=== PATIENT | female | born 1985 | race Caucasian/White ===

== ENCOUNTER 2016-05-21 13:08 | Emergency (ER) | payer MEDICAID ==
--- NOTE | 2016-05-21 13:10 | EDM.PDOC ---
ED HISTORY OF PRESENT ILLNESS - General Chief Complaint: Chest Pain Stated Complaint: chest pain [id number] Time Seen by Provider: 05/21/16 13:13 Source of Information: Reports: Patient, RN, RN notes reviewed History Limitations: Reports: No limitations - History of Present Illness INITIAL COMMENTS - FREE TEXT/NARRATIVE: Complaining of gradual onset of lower left chest pain at 11 p.m. last night. It went away after a few hours then returned this morning and now much worse. Radiates straight through to left mid-back. Admits to SOB and painful to breathe. Denies cough, fever, chills or sore throat. She took three 81mg aspirin prior to arrival. Severity: moderate Location, General: Reports: chest Quality: Reports: Ache Improves with: Reports: Movement Worsens with: Reports: None Associated Symptoms (General): Reports: no other symptoms - Related Data Allergies/ADRs: Allergies Allergy/AdvReac Type Severity Reaction Status Date / Time ampicillin Allergy Cannot Verified 09/18/14 23:49 Remember Penicillins Allergy Cannot Verified 09/18/14 23:49 Remember Home Meds: Home Meds . [No Known Home Meds] 01/26/13 [History] Past Medical History Psychiatric History: Reports: Depression - Past Surgical History Female Surgical History: Reports: Tubal ligation (bilateral) Social & Family History - Family History Family Medical History: Noncontributory - Tobacco Use Smoking Status *Q: Current Every Day Smoker Years of Tobacco use: 18 Second Hand Smoke Exposure: Yes - Recreational Drug Use Recreational Drug Use: No ED ROS GENERAL - Review of Systems Review Of Systems: ROS reveals no pertinent complaints other than HPI. ED EXAM, GENERAL - Physical Exam Exam: See Below Exam Limited By: No limitations Eye Exam: bilateral eye: normal inspection Ears: normal external exam, normal canal, hearing grossly normal, normal TMs Nose: normal inspection, normal mucosa, no blood Throat/Mouth: Normal inspection, Normal lips, Normal teeth, Normal gums, Normal oropharynx, Normal voice, No airway compromise Head: atraumatic, normocephalic Neck: normal inspection, supple, non-tender, full range of motion Respiratory/Chest: other (decreased sounds in bilateral bases, otherwise clear. Left lower anterior chest wall tenderness.) Cardiovascular: normal peripheral pulses, regular rate, rhythm, no edema, no gallop, no JVD, no murmur, no rub GI/Abdominal: other (Left upper quadrant tenderness.) Back Exam: normal inspection, full range of motion, NT Extremities: normal inspection, normal range of motion, non-tender, normal capillary refill, no pedal edema Neurological: alert, oriented, CN II-XII intact, normal cognition, normal gait, normal reflexes, no motor/sensory deficits Psychiatric: normal affect, normal mood Skin Exam: Warm, Dry, Intact, Normal color, No rash Lymphatic: no adenopathy EKG INTERPRETATION EKG Date: 05/21/16 Time: 13:13 Rhythm: other (sinus rhythm) Rate (beats/min): 83 [place]: normal P-wave: present QRS: normal ST-T: normal QT: normal Course - Vital Signs Last Recorded V/S: Last Vital Signs Temp 36.8 C 05/21/16 13:36 Pulse 85 05/21/16 13:36 Resp 20 05/21/16 13:36 BP 107/62 05/21/16 13:36 Pulse Ox 99 05/21/16 13:36 - Orders/Labs/Meds Orders: Active Orders 24 hr Category Date Time Status EKG 12 Lead [EKG Documentation Completion] [RC] STAT Care 05/21/16 13:34 Active Peripheral IV Care [RC] . DIRECTED Care 05/21/16 13:35 Active RT Aerosol Therapy [RC] ASDIRECTED Care 05/21/16 14:23 Active RT Incentive Spirometry [RC] ASDIRECTED Care 05/21/16 14:28 Active Chest 2V [CR] Stat Exams 05/21/16 13:35 Taken UA W/MICROSCOPIC [URIN] Stat Lab 05/21/16 13:34 Uncollected Sodium Chloride 0.9% [Saline Flush] Med 05/21/16 13:33 Active 10 ml FLUSH ASDIRECTED PRN Peripheral IV Insertion Adult [OM.PC] Stat Oth 05/21/16 13:34 Ordered Medication Orders Sodium Chloride (Saline Flush) 10 ml FLUSH ASDIRECTED PRN PRN Reason: Keep Vein Open Labs: Laboratory Tests 05/21/16 05/21/16 05/21/16 Range/Units 13:45 13:45 13:45 WBC 9.5 (5.0-10.0) 10^3/uL RBC 4.19 L (4.2-5.4) 10^6/uL Hgb 12.5 (12.0-16.0) g/dL Hct 37.8 (37.0-47.0) % MCV 90.2 (80-100) fL MCH 29.8 (27.0-34.0) pg MCHC 33.1 (33.0-35.0) g/dL Plt Count 167 (150-450) 10^3/uL Neut % (Auto) 74.7 (42.2-75.2) % Lymph % (Auto) 16.6 L (20.5-50.1) % [place] % (Auto) 7.4 (2-8) % Eos % (Auto) 1.1 (1.0-3.0) % Baso % (Auto) 0.2 (0.0-1.0) % D-Dimer, Quantitative 367 (0-400) ng/mL Sodium 136 (135-145) mmol/L Potassium 4.0 (3.6-5.0) mmol/L Chloride 103 (101-111) mmol/L Carbon Dioxide 25.0 (21.0-31.0) mmol/L Anion Gap 12.0 BUN 9 (7-18) mg/dL Creatinine 0.6 (0.6-1.3) mg/dL Est Cr Clr Drug Dosing 137.04 mL/min Estimated GFR (MDRD) > 60 BUN/Creatinine Ratio 15.00 Glucose 94 (74-105) mg/dL Calcium 8.9 (8.4-10.2) mg/dl Total Bilirubin 0.4 (0.2-1.0) mg/dL AST 13 (10-42) IU/L ALT 9 L (10-60) IU/L Alkaline Phosphatase 55 (42-121) IU/L Troponin I < 0.02 (0.00-0.02) ng/ml Total Protein 7.5 (6.7-8.2) g/dl Albumin 4.0 (3.2-5.5) g/dl Globulin 3.5 Albumin/Globulin Ratio 1.14 Amylase 31 (28-100) U/L Lipase 13 L (22-51) U/L Meds: Medications Generic Name Dose Route Start Last Admin Trade Name Freq PRN Reason Stop Dose Admin Sodium Chloride 10 ml 05/21/16 13:33 Saline Flush FLUSH ASDIRECTED PRN Keep Vein Open Discontinued Medications Generic Name Dose Route Start Last Admin Trade Name [place] PRN Reason Stop Dose Admin Hydrocodone Bitart/Acetaminophen 1 tab 05/21/16 14:22 [place] 325-10 Mg PO 05/21/16 14:23 ONETIME ONE Albuterol/Ipratropium 3 ml 05/21/16 14:22 Duoneb 3.0-0.5 Mg/3 Ml NEB 05/21/16 14:23 ONETIME ONE Azithromycin 500 mg 05/21/16 14:30 Zithromax PO 05/21/16 14:31 ONETIME ONE Methylprednisolone Sodium Succinate 125 mg 05/21/16 14:30 Solu-Medrol IVPUSH 05/21/16 14:31 ONETIME ONE - Radiology Interpretation Free Text/Narrative:: Chest x-ray: Per rad report shows mild opacity in the lingula may represent atelectasis or pneumonia. CT Results Date: 05/21/16 Departure - Departure Time of Disposition: 14:39 Disposition: Home, Self-Care 01 Condition: fair Clinical Impression: Pleurisy without effusion, Atelectasis of left lung, Tobacco abuse disorder Instructions: Pleurisy, [id number], Pleurodynia Forms: ED Department Discharge Additional Instructions: Rx: Zithromax 250mg Rx: Prednisone 20mg Rx: Phenergan Codeine Syrup *Do not drive while under the influence of this medication. Use the incentive spirometer once every hour while awake until the pain has completely resolved. Quit smoking. Follow up at your primary clinic in 2 to 3 days for recheck if not improving, otherwise follow up 2 weeks for lung recheck. - My Orders Last 24 Hours: My Active Orders 05/21/16 13:33 Sodium Chloride 0.9% [Saline Flush] 10 ml FLUSH ASDIRECTED PRN 05/21/16 13:34 EKG 12 Lead [EKG Documentation Completion] [RC] STAT UA W/MICROSCOPIC [URIN] Stat Peripheral IV Insertion Adult [OM.PC] Stat 05/21/16 13:35 Peripheral IV Care [RC] . DIRECTED Chest 2V [CR] Stat 05/21/16 14:23 RT Aerosol Therapy [RC] ASDIRECTED 05/21/16 14:28 RT Incentive Spirometry [RC] ASDIRECTED - Assessment/Plan Last 24 Hours: My Active Orders 05/21/16 13:33 Sodium Chloride 0.9% [Saline Flush] 10 ml FLUSH ASDIRECTED PRN 05/21/16 13:34 EKG 12 Lead [EKG Documentation Completion] [RC] STAT UA W/MICROSCOPIC [URIN] Stat Peripheral IV Insertion Adult [OM.PC] Stat 05/21/16 13:35 Peripheral IV Care [RC] . DIRECTED Chest 2V [CR] Stat 05/21/16 14:23 RT Aerosol Therapy [RC] ASDIRECTED 05/21/16 14:28 RT Incentive Spirometry [RC] ASDIRECTED
[2016-05-21] MEDS ORDERED: Sodium Chloride 0.9% 10 ML Syringe FLUSH PRN (13:33)
[2016-05-21 13:40] VITALS: BP 107/62
[2016-05-21 14:13] LABS: CHLORIDE,CL 103 mmol/L (101-111); SODIUM,NA 136 mmol/L (135-145)
[2016-05-21] MEDS ORDERED: Albuterol/Ipratropium 3.0-0.5 MG/3 ML Neb Soln NEB ONE (14:22)
[2016-05-21] MEDS ORDERED: Acetaminophen/HYDROcodone 325-10 MG Tab PO ONE (14:22)
[2016-05-21] MEDS ORDERED: Azithromycin 250 MG Tab PO ONE (14:30)
[2016-05-21] MEDS ORDERED: methylPREDNISolone Sodium Succinate 125 MG/2 ML SDV IVPUSH ONE (14:30)
--- NOTE | 2016-06-13 13:11 | EKG ---
05/21/2016- ERICA MONTILLA - This is a 12-lead standard EKG showing normal sinus rhythm, with a heart rate of 83 beats per minute. Normal MO interval and QRS duration. Normal axis. No ST- T changes. Normal EKG. [facility] /[id number]
== END 2016-05-21 15:20 | disposition home or self-care (01) ==
LOC: DL.ED 13:08
DX: J98.11 Atelectasis (principal); R09.1 Pleurisy; F32.9 Major depressive disorder, single episode, unspecified; F17.200 Nicotine dependence, unspecified, uncomplicated; Z98.51 Tubal ligation status; Z88.0 Allergy status to penicillin; Z88.1 Allergy status to other antibiotic agents
CPT/HCPCS: 36415; 71020; 80053; 82150; 83690; 84484; 85025; 85379; 93005; 94010; 94640; 96374; 99285; A9270; J2930; J7050

== ENCOUNTER 2016-10-03 12:11 | Inpatient (IN) | payer MEDICAID ==
[2016-10-03] MEDS ORDERED: Ondansetron 4 MG/2 ML SDV IV ONE (13:03)
[2016-10-03] MEDS ORDERED: Sodium Chloride 0.9% 1,000 ML IV ONE (13:03)
--- NOTE | 2016-10-03 13:03 | EDM.PDOC ---
ED HPI GENERAL MEDICAL PROBLEM - General Chief Complaint: Flank Pain Stated Complaint: sick, fever Time Seen by Provider: 10/03/16 12:50 Source of Information: Reports: Patient History Limitations: Reports: No Limitations - History of Present Illness INITIAL COMMENTS - FREE TEXT/NARRATIVE: This 30 yo female patient reports to the ED with a 4 day history of increased abdominal and left flank pain. The patient reports she has not been able to eat or drink due to increased nausea over the past 3 days. The patient has not taken any medications for temporary symptom relief. The patient also reports a headache and bilateral ankle pain. The patient has not been seen by her primary care facility. The patient reports she had a regular bowel movement this morning. Onset: Gradual Duration: Day(s): (4), Constant, Getting Worse Location: Reports: Head, Abdomen, Back (right flank), Lower Extremity, Left, Lower Extremity, Right Quality: Reports: Ache, Sharp Severity: Severe Improves with: Reports: None Worsens with: Reports: None Associated Symptoms: Reports: No Other Symptoms Treatments CORE FILER: Reports: Acetaminophen - Related Data Allergies Allergy/AdvReac Type Severity Reaction Status Date / Time ampicillin Allergy Cannot Verified 09/18/14 23:49 Remember Penicillins Allergy Cannot Verified 09/18/14 23:49 Remember Home Meds: Home Meds Acetaminophen [Tylenol Extra Strength] 500 10/03/16 [History] Past Medical History - Past Health History Medical/Surgical History: Denies Medical/Surgical History Psychiatric History: Reports: Depression - Past Surgical History Female Surgical History: Reports: Tubal Ligation Social & Family History - Family History Family Medical History: Noncontributory - Tobacco Use Smoking Status *Q: Current Every Day Smoker Years of Tobacco use: 15 Packs/Tins Daily: 1 Second Hand Smoke Exposure: Yes - Caffeine Use Caffeine Use: Reports: Coffee, Energy Drinks, Soda Other Caffeine Use: "a lot daily" - Recreational Drug Use Recreational Drug Use: No ED ROS GENERAL - Review of Systems Review Of Systems: ROS reveals no pertinent complaints other than HPI. ED EXAM, GI/ABD - Physical Exam Exam: See Below Exam Limited By: No Limitations General Appearance: Alert, WD/WN, Moderate Distress Eyes: Bilateral: Normal Appearance, EOMI Ears: Normal External Exam, Normal Canal, Hearing Grossly Normal, Normal TMs Nose: Normal Inspection, Normal Mucosa, No Blood Throat/Mouth: Normal Inspection, Normal Lips, Normal Teeth, Normal Gums, Normal Oropharynx, Normal Voice, No Airway Compromise Head: Atraumatic, Normocephalic Neck: Normal Inspection, Supple, Non-Tender, Full Range of Motion Respiratory/Chest: No Respiratory Distress, Lungs Clear, Normal Breath Sounds, No Accessory Muscle Use, Chest Non-Tender Cardiovascular: Normal Peripheral Pulses, Regular Rate, Rhythm, No Edema, No Gallop, No JVD, No Murmur, No Rub GI/Abdominal Exam: Normal Bowel Sounds, Soft, Tender (right flank and right lateral abdomen) (Female) Exam: Deferred Rectal (Female) Exam: Deferred Back Exam: Full Range of Motion, CVA Tenderness (R) Extremities: Normal Inspection, Normal Range of Motion, Non-Tender, No Pedal Edema, Normal Capillary Refill Neurological: Alert, Oriented, CN II-XII Intact, Normal Cognition, Normal Gait, Normal Reflexes, No Motor/Sensory Deficits Psychiatric: Normal Affect, Normal Mood Skin Exam: Warm, Dry, Intact, Normal Color, No Rash Lymphatic: No Adenopathy Course - Vital Signs Last Recorded V/S: Last Vital Signs Temp 37.6 C 10/03/16 12:30 Pulse 102 H 10/03/16 12:30 Resp 16 10/03/16 12:30 BP 110/60 10/03/16 12:30 Pulse Ox 97 10/03/16 12:30 - Orders/Labs/Meds Orders: Active Orders 24 hr Category Date Time Status Abdomen Pelvis wo Cont [CT] Urgent Exams 10/03/16 13:43 Taken CULTURE BLOOD [BC] Stat Lab 10/03/16 13:10 Received CULTURE BLOOD [BC] Stat Lab 10/03/16 13:27 Received CULTURE URINE [RM] Stat Lab 10/03/16 12:50 Received Blood Culture x2 Reflex Set [OM.PC] Stat Oth 10/03/16 12:39 Ordered Labs: Laboratory Tests 10/03/16 10/03/16 10/03/16 Range/Units 12:50 12:50 12:50 WBC (5.0-10.0) 10^3/uL RBC (4.2-5.4) 10^6/uL Hgb (12.0-16.0) g/dL Hct (37.0-47.0) % MCV (80-100) fL MCH (27.0-34.0) pg MCHC (33.0-35.0) g/dL Plt Count (150-450) 10^3/uL Neut % (Auto) (42.2-75.2) % Lymph % (Auto) (20.5-50.1) % [place] % (Auto) (2-8) % Eos % (Auto) (1.0-3.0) % Baso % (Auto) (0.0-1.0) % Add Manual Diff Neutrophils % (Manual) % Band Neutrophils % % Lymphocytes % (Manual) % Monocytes % (Manual) % Sodium (135-145) mmol/L Potassium (3.6-5.0) mmol/L Chloride (101-111) mmol/L Carbon Dioxide (21.0-31.0) mmol/L Anion Gap BUN (7-18) mg/dL Creatinine (0.6-1.3) mg/dL Est Cr Clr Drug Dosing Estimated GFR (MDRD) BUN/Creatinine Ratio Glucose (74-105) mg/dL Calcium (8.4-10.2) mg/dl Magnesium (1.8-2.5) mg/dL Total Bilirubin (0.2-1.0) mg/dL AST (10-42) IU/L ALT (10-60) IU/L Alkaline Phosphatase (42-121) IU/L Total Protein (6.7-8.2) g/dl Albumin (3.2-5.5) g/dl Globulin Albumin/Globulin Ratio Amylase (28-100) U/L Lipase (22-51) U/L Urine Color Dark yellow (YELLOW) Urine Appearance Slightly cloudy (CLEAR) Urine pH 5.5 (5.0-9.0) Ur Specific [place] 1.025 (1.005-1.030) Urine Protein >=300 H (NEGATIVE) Urine Glucose (UA) Negative (NEGATIVE) Urine Ketones Trace H (NEGATIVE) Urine Occult Blood Large H (NEGATIVE) Urine Nitrite Positive H (NEGATIVE) Urine Bilirubin Small H (NEGATIVE) Urine Urobilinogen 2.0 H (0.2-1.0) mg/dL Ur Leukocyte Esterase Trace H (NEGATIVE) Urine RBC 20-30 H /HPF Urine WBC 5-10 H (0-5/HPF) /HPF Ur Epithelial Cells Moderate H /HPF Amorphous Sediment Moderate H (0/HPF) /HPF Urine Bacteria Many H (0-FEW/HPF) /HPF Urine Mucus Many H /LPF Urine HCG, Qual Negative Salicylates Urine Opiates Screen Negative (NEGATIVE) Ur Oxycodone Screen Negative (NEGATIVE) Urine Methadone Screen Negative (NEGATIVE) Acetaminophen Ur Barbiturates Screen Negative (NEGATIVE) U Tricyclic Antidepress Negative (NEGATIVE) Ur Phencyclidine Scrn Negative (NEGATIVE) Ur Amphetamine Screen Negative (NEGATIVE) U Methamphetamines Scrn Negative (NEGATIVE) Urine MDMA Screen Negative (NEGATIVE) U Benzodiazepines Scrn Negative (NEGATIVE) Urine Cocaine Screen Negative (NEGATIVE) U Marijuana (THC) Screen Positive H (NEGATIVE) Ethyl Alcohol mg/dL 10/03/16 10/03/16 Range/Units 13:10 13:10 WBC 16.1 H (5.0-10.0) 10^3/uL RBC 4.16 L (4.2-5.4) 10^6/uL Hgb 12.5 (12.0-16.0) g/dL Hct 37.3 (37.0-47.0) % MCV 89.7 (80-100) fL MCH 30.0 (27.0-34.0) pg MCHC 33.5 (33.0-35.0) g/dL Plt Count 100 L (150-450) 10^3/uL Neut % (Auto) 83.6 H (42.2-75.2) % Lymph % (Auto) 5.2 L (20.5-50.1) % [place] % (Auto) 11.2 H (2-8) % Eos % (Auto) 0.0 L (1.0-3.0) % Baso % (Auto) 0.0 (0.0-1.0) % Add Manual Diff Yes Neutrophils % (Manual) 71 % Band Neutrophils % 8 % Lymphocytes % (Manual) 10 % Monocytes % (Manual) 11 % Sodium 131 L (135-145) mmol/L Potassium 3.2 L (3.6-5.0) mmol/L Chloride 99 L (101-111) mmol/L Carbon Dioxide 22.0 (21.0-31.0) mmol/L Anion Gap 13.2 BUN 12 (7-18) mg/dL Creatinine 0.9 (0.6-1.3) mg/dL Est Cr Clr Drug Dosing TNP Estimated GFR (MDRD) > 60 BUN/Creatinine Ratio 13.33 Glucose 117 H (74-105) mg/dL Calcium 8.3 L (8.4-10.2) mg/dl Magnesium 1.6 L (1.8-2.5) mg/dL Total Bilirubin 0.5 (0.2-1.0) mg/dL AST 18 (10-42) IU/L ALT 12 (10-60) IU/L Alkaline Phosphatase 44 (42-121) IU/L Total Protein 6.7 (6.7-8.2) g/dl Albumin 3.7 (3.2-5.5) g/dl Globulin 3.0 Albumin/Globulin Ratio 1.23 Amylase 21 L (28-100) U/L Lipase 11 L (22-51) U/L Urine Color (YELLOW) Urine Appearance (CLEAR) Urine pH (5.0-9.0) Ur Specific [place] (1.005-1.030) Urine Protein (NEGATIVE) Urine Glucose (UA) (NEGATIVE) Urine Ketones (NEGATIVE) Urine Occult Blood (NEGATIVE) Urine Nitrite (NEGATIVE) Urine Bilirubin (NEGATIVE) Urine Urobilinogen (0.2-1.0) mg/dL Ur Leukocyte Esterase (NEGATIVE) Urine RBC /HPF Urine WBC (0-5/HPF) /HPF Ur Epithelial Cells /HPF Amorphous Sediment (0/HPF) /HPF Urine Bacteria (0-FEW/HPF) /HPF Urine Mucus /LPF Urine HCG, Qual Salicylates < 4 Urine Opiates Screen (NEGATIVE) Ur Oxycodone Screen (NEGATIVE) Urine Methadone Screen (NEGATIVE) Acetaminophen < 10 Ur Barbiturates Screen (NEGATIVE) U Tricyclic Antidepress (NEGATIVE) Ur Phencyclidine Scrn (NEGATIVE) Ur Amphetamine Screen (NEGATIVE) U Methamphetamines Scrn (NEGATIVE) Urine MDMA Screen (NEGATIVE) U Benzodiazepines Scrn (NEGATIVE) Urine Cocaine Screen (NEGATIVE) U Marijuana (THC) Screen (NEGATIVE) Ethyl Alcohol < 5 mg/dL Meds: Medications Discontinued Medications Generic Name Dose Route Start Last Admin Trade Name Freq PRN Reason Stop Dose Admin Sodium Chloride 1,000 mls @ 999 mls/hr 10/03/16 13:03 10/03/16 13:19 Normal Saline IV 10/03/16 14:03 999 mls/hr .BOLUS ONE Administration Ceftriaxone Sodium 1 gm/ 50 mls @ 100 mls/hr 10/03/16 13:34 Sodium Chloride IV 10/03/16 14:03 ONETIME ONE Ondansetron HCl 4 mg 10/03/16 13:03 10/03/16 13:19 Zofran IV 10/03/16 13:04 4 mg ONETIME ONE Administration Departure - Departure Time of Disposition: 14:37 Disposition: Admitted As Inpatient 65 Condition: Poor Clinical Impression: Pyelonephritis, UTI, Urinary tract infectious disease - Discharge Information Care Plan Goals: Discussed the examination, history, lab and CT results with Dr. Mejia. Dr. Mejia accepted the patient for continued evaluation and management as an inpatient at [facility]. - My Orders Last 24 Hours: My Active Orders 10/03/16 12:39 Blood Culture x2 Reflex Set [OM.PC] Stat 10/03/16 12:50 CULTURE URINE [RM] Stat 10/03/16 13:10 CULTURE BLOOD [BC] Stat 10/03/16 13:27 CULTURE BLOOD [BC] Stat 10/03/16 13:43 Abdomen Pelvis wo Cont [CT] Urgent - Assessment/Plan Last 24 Hours: My Active Orders 10/03/16 12:39 Blood Culture x2 Reflex Set [OM.PC] Stat 10/03/16 12:50 CULTURE URINE [RM] Stat 10/03/16 13:10 CULTURE BLOOD [BC] Stat 10/03/16 13:27 CULTURE BLOOD [BC] Stat 10/03/16 13:43 Abdomen Pelvis wo Cont [CT] Urgent
[2016-10-03] MEDS ORDERED: cefTRIAXone 1 GM in Sodium Chloride 0.9% 50 ML IV ONE (13:34)
[2016-10-03 13:37] LABS: CHLORIDE,CL 99 mmol/L (101-111); SODIUM,NA 131 mmol/L (135-145)
[2016-10-03 13:38] LABS: ACETAMINOPHEN < 10
[2016-10-03] MEDS ORDERED: Potassium Chloride 10 MEQ Tab.ER PO ONE (15:33)
--- NOTE | 2016-10-03 16:34 | PCM.HP ---
H&P History of Present Illness - General Date of Service: 10/03/16 Admit Problem/Dx: Admission Diagnosis/Problem Admission Diagnosis/Problem UTI, Urinary tract infectious disease Source of Information: Patient History Limitations: Reports: No Limitations - History of Present Illness Initial Comments - Free Text/Narative: Patient is a 30 year old female went to the emergency room becuase of flank pain. symptoms started around two days prior to this visit. associated with epidose fever, chills, vomiting. last vomiting was last night. feeling hot to the point that she needed to shower twice to cool down. today, noticed blood in the urine. has not anything to eat in the last two days. no constipation nor diarrhea otherwise. no history of kidney stones in the past . LMP was 2 weeks ago. Work up in the emergency room showed leukocytosis, CT scan showed findings suggestive of a recently passed stone, urinalysis findings showing signs of infection. She was already given IV ceftriaxone, was advised admission. headache Pain Score (Numeric/FACES): 2 Right lateral side Pain Score (Numeric/FACES): 6 - Related Data Allergies/Adverse Reactions: Allergies Allergy/AdvReac Type Severity Reaction Status Date / Time ampicillin Allergy Cannot Verified 10/03/16 15:17 Remember Penicillins Allergy Cannot Verified 10/03/16 15:17 Remember Home Medications: Home Meds Acetaminophen [Tylenol Extra Strength] 500 mg PO ASDIRECTED PRN 10/03/16 [ History] Ciprofloxacin [IJD: Ciprofloxacin HCl] 500 mg PO BID #14 tab 10/05/16 [Rx] Past Medical History - Past Health History Medical/Surgical History: Denies Medical/Surgical History Genitourinary History: Reports: UTI, Recurrent SEAMER History: Reports: Psychiatric History: Reports: Depression - Infectious Disease History Infectious Disease History: Reports: Chicken Pox, Measles - Past Surgical History Female Surgical History: Reports: Tubal Ligation Social & Family History - Family History Family Medical History: Noncontributory HEENT: Reports: None Cardiac: Reports: NH, Pacemaker Other Cardiac Family History: Grandfather on mothers side has pacemaker. Grandfather on fathers side of heart-attack Respiratory: Reports: Asthma Other Respiratory Family Hisory: Grandmother on mothers side has "rare lung disease", patient does not know name of disease. Client's mother has asthmatic bronchitis. GI: Reports: Other (See Below) Other GI Family History: father has abdominal hernia r/t colon cancer per client 's mother. : Reports: UTI, Recurrent, Other (See Below) Other Family History: Grandmother has "fallen bladder". OBGYN: Reports: None Musculoskeletal: Reports: Other (See Below) Other Musculoskeletal Family History: Mother has osteopenia Neurological: Reports: CVA Other Neurological Family History: Grandfather had stroke Psychiatric: Reports: Depression Endocrine/Metabolic: Reports: Other (See Below) Other Endocrine/Metabolic Family History: Grandfather has diabetes. Type unknown. Oncologic: Reports: Colon Other Oncologic Family History: Father has colon cancer. - Tobacco Use Smoking Status *Q: Current Every Day Smoker Years of Tobacco use: 15 Packs/Tins Daily: 1 Second Hand Smoke Exposure: Yes - Caffeine Use Caffeine Use: Reports: Coffee, Energy Drinks, Soda Other Caffeine Use: "a lot daily" - Recreational Drug Use Recreational Drug Use: No H&P Review of Systems - Review of Systems: Review Of Systems: See Below General: Reports: Fever, Chills Pulmonary: Reports: No Symptoms Gastrointestinal: Reports: Abdominal Pain, Decreased Appetite, Vomiting Genitourinary: Reports: Hematuria Exam - Exam Exam: See Below - Vital Signs Vital Signs: Last Vital Signs Temp 38.4 C H 10/03/16 15:15 Pulse 96 10/03/16 15:15 Resp 20 10/03/16 15:15 BP 98/59 L 10/03/16 15:15 Pulse Ox 100 10/03/16 15:15 Weight: 58.117 kg - Exam General: Alert, Oriented Cardiovascular: Regular Rate, Regular Rhythm - Patient Data Result Diagrams: 10/04/16 06:05 10/04/16 06:05 Problem List Initiated/Reviewed/Updated: Yes Orders Last 24hrs: Active Orders 24 hr Category Date Time Status BASIC METABOLIC PANEL,BMP [CHEM] Routine Lab 10/04/16 06:00 Ordered CBC WITH AUTO DIFF [HEME] Routine Lab 10/04/16 06:00 Ordered Sodium Chloride 0.9% [Normal Saline] 1,000 ml Med 10/03/16 15:45 Active IV ASDIRECTED cefTRIAXone [Rocephin] 1 gm Med 10/04/16 09:00 Active Sodium Chloride 0.9% [Normal Saline] 50 ml IV Q24H Medication Orders Sodium Chloride (Normal Saline) 1,000 mls @ 125 mls/hr IV ASDIRECTED ANNELIESE Ceftriaxone Sodium 1 gm/ (Sodium Chloride) 50 mls @ 100 mls/hr IV Q24H [facility] Assessment/Plan Comment:: right flank pain with fever and leukocytosis, consideration for pyelonephritis - Continue with IV Rocephin - send urine for cultur - normal salin 125ml/hr - Tylenol PRN for pain and fever Leukocytosis - await cultures - repeat CBC Thrombocytopenia - unclear etiology - monitor for signs of bleeding DVT prophylaxis - antiembolic hose - holding off with anticoagulation due to thrombocytopenia COde status: Full
[2016-10-03] MEDS: Sodium Chloride 0.9% 1,000 ML IV SCH (17:03)
[2016-10-03] MEDS: Acetaminophen 325 MG Tab PO PRN ×2 (17:12→23:35)
[2016-10-04] MEDS: Sodium Chloride 0.9% 1,000 ML IV SCH ×3 (02:24→21:14)
[2016-10-04] MEDS: Acetaminophen 325 MG Tab PO PRN ×2 (06:17→21:39)
[2016-10-04 06:41] LABS: CHLORIDE,CL 108 mmol/L (101-111); SODIUM,NA 138 mmol/L (135-145)
[2016-10-04] MEDS: cefTRIAXone 1 GM in Sodium Chloride 0.9% 50 ML IV SCH (10:39)
--- NOTE | 2016-10-04 11:05 | PCM.PN ---
- General Info Date of Service: 10/04/16 Subjective Update: Patient is a 30 year old female admitted yesterday due to pyelonephritis. Patient was able to tolerate breakfast this morning, no recurrence of the vomiting. still has not moved bowels, but passing gas. continues to have flank pain on the right, tyelnol is helping but not that long. still feels hot. no other new concerns from the nursing staff. Functional Status: Reports: Tolerating Diet - Patient Data Vitals - Most Recent: Last Vital Signs Temp 37.1 C 10/04/16 10:58 Pulse 74 10/04/16 10:58 Resp 20 10/04/16 10:58 BP 101/52 L 10/04/16 10:58 Pulse Ox 100 10/04/16 10:58 Weight - Most Recent: 58.117 kg I&O - Last 24 Hours: Intake & Output 10/03/16 10/04/16 10/04/16 22:59 06:59 14:59 Intake Total 1340 75 125 Output Total 600 300 Balance 740 -225 125 Lab Results Last 24 Hours: Laboratory Results - last 24 hr 10/04/16 10/04/16 Range/Units 06:05 06:05 WBC 11.4 H (5.0-10.0) 10^3/uL RBC 3.78 L (4.2-5.4) 10^6/uL Hgb 11.4 L (12.0-16.0) g/dL Hct 34.2 L (37.0-47.0) % MCV 90.5 (80-100) fL MCH 30.2 (27.0-34.0) pg MCHC 33.3 (33.0-35.0) g/dL Plt Count 91 L (150-450) 10^3/uL Neut % (Auto) 76.0 H (42.2-75.2) % Lymph % (Auto) 12.4 L (20.5-50.1) % [place] % (Auto) 11.2 H (2-8) % Eos % (Auto) 0.3 L (1.0-3.0) % Baso % (Auto) 0.1 (0.0-1.0) % Sodium 138 (135-145) mmol/L Potassium 3.7 (3.6-5.0) mmol/L Chloride 108 (101-111) mmol/L Carbon Dioxide 22.0 (21.0-31.0) mmol/L Anion Gap 11.7 BUN 10 (7-18) mg/dL Creatinine 0.7 (0.6-1.3) mg/dL Est Cr Clr Drug Dosing 106.83 mL/min Estimated GFR (MDRD) > 60 Glucose 105 (74-105) mg/dL Calcium 8.0 L (8.4-10.2) mg/dl Med Orders - Current: Current Medications Acetaminophen (Tylenol) 650 mg PO Q6H PRN PRN Reason: Fever Last Admin: 10/04/16 06:17 Dose: 650 mg Sodium Chloride (Normal Saline) 1,000 mls @ 125 mls/hr IV ASDIRECTED [facility] Last Admin: 10/04/16 02:24 Dose: 125 mls/hr Ceftriaxone Sodium 1 gm/ (Sodium Chloride) 50 mls @ 100 mls/hr IV Q24H [facility] Last Admin: 10/04/16 10:39 Dose: 100 mls/hr Naproxen (Naprosyn) 250 mg PO Q6HR [facility] Discontinued Medications Sodium Chloride (Normal Saline) 1,000 mls @ 999 mls/hr IV .BOLUS ONE Stop: 10/03/16 14:03 Last Admin: 10/03/16 13:19 Dose: 999 mls/hr Ceftriaxone Sodium 1 gm/ (Sodium Chloride) 50 mls @ 100 mls/hr IV ONETIME ONE Stop: 10/03/16 14:03 Last Admin: 10/03/16 14:51 Dose: 100 mls/hr Ondansetron HCl (Zofran) 4 mg IV ONETIME ONE Stop: 10/03/16 13:04 Last Admin: 10/03/16 13:19 Dose: 4 mg Potassium Chloride (Klor-Con 10) 20 meq PO ONETIME ONE Stop: 10/03/16 15:34 Last Admin: 10/03/16 16:19 Dose: 20 meq - Exam General: Alert, Oriented Lungs: Clear to Auscultation, Normal Respiratory Effort Cardiovascular: Regular Rate, Regular Rhythm GI/Abdominal Exam: Normal Bowel Sounds, Soft, Other (direct tenderness on the right flank) - Problem List Review Problem List Initiated/Reviewed/Updated: Yes - My Orders Last 24 Hours: My Active Orders 10/03/16 15:45 Sodium Chloride 0.9% [Normal Saline] 1,000 ml IV ASDIRECTED 10/03/16 16:36 Acetaminophen [Tylenol] 650 mg PO Q6H PRN 10/04/16 09:00 cefTRIAXone [Rocephin] 1 gm Sodium Chloride 0.9% [Normal Saline] 50 ml IV Q24H 10/04/16 12:00 Naproxen [Naprosyn] 250 mg PO Q6HR - Plan Plan:: Acute pyelonephritis, leukocytosis have improved - continue with IV rocephine - continue normal saline for now - pain control with Tylenol, add Naproxen - Urince culture preliminary showed >100,000 CFU gram neg, await final reading Thrombocytopenia - unclear etiology - monitor for signs of bleeding - stable DVT prophylaxis - antiembolic hose - holding off with anticoagulation due to thrombocytopenia COde status: Full
[2016-10-04] MEDS: Naproxen 250 MG Tab PO SCH ×3 (11:40→23:52)
[2016-10-05] MEDS: Sodium Chloride 0.9% 1,000 ML IV SCH (05:00)
[2016-10-05] MEDS: Naproxen 250 MG Tab PO SCH (05:02)
[2016-10-05] MEDS: Acetaminophen 325 MG Tab PO PRN (07:43)
[2016-10-05] MEDS: cefTRIAXone 1 GM in Sodium Chloride 0.9% 50 ML IV SCH (09:11)
[2016-10-05 11:05] VITALS: BP 106/53
--- NOTE | 2016-10-05 12:15 | DISCH ---
FINAL DIAGNOSES: 1. Acute pyelonephritis. 2. Thrombocytopenia. SUMMARY OF HOSPITAL COURSE: Ms Lora Vuong is a 30-year-old female with no significant past medical history. She presented with complaint of right flank pain associated with fever, chills, and vomiting. She was diagnosed with acute pyelonephritis. Urine culture came back positive with E coli. Blood culture was negative. She was started on intravenous ceftriaxone and did well. She is no longer having fever. Her pain has improved. She will be discharged on oral ciprofloxacin for the next 7 days. PHYSICAL EXAMINATION: Vital Signs: Reviewed. No fever. General: At discharge, the patient is alert, oriented to place, time, and person. Head: Atraumatic and normocephalic. Ear, Nose, And Throat: Unremarkable. Neck: Supple. Chest: Clear to auscultation. CVS: Regular rate and rhythm. No S3 or S4. Abdomen: Soft, nontender. Extremities: No pedal edema. Follow up with primary MD in 1 week. [facility] /[id number]
== END 2016-10-05 11:15 | disposition home or self-care (01) | DRG 690 ==
LOC: DL.ED 12:11 → UNDOADMIN 15:14 → DL.MS 15:14
PROVIDERS: ADMIT Internal Medicine; ATTEND Internal Medicine
DX: N10 Acute pyelonephritis (principal); B96.20 Unspecified Escherichia coli [E. coli] as the cause of diseases classified elsewhere; D69.6 Thrombocytopenia, unspecified; F17.210 Nicotine dependence, cigarettes, uncomplicated
CPT/HCPCS: 36415; 74176; 80048; 80053; 80305; 81001; 81025; 82150; 83690; 83735; 85025; 87040; 87086; 87088; 87186; 96361; 96365; 96375; 99285; A9270-GY; G0480; J0696; J2405; J7030; J7050

== ENCOUNTER 2017-11-19 13:07 | Emergency (ER) | payer MEDICAID ==
[2017-11-19 13:54] VITALS: BP 102/60
--- NOTE | 2017-11-19 14:46 | EDM.PDOC ---
Scribed by Elizabeth Minaya 11/19/17 1116 for Jerrod Guzman MD ED HPI GENERAL MEDICAL PROBLEM - General Chief Complaint: ENT Problem Stated Complaint: SORE THROAT Time Seen by Provider: 11/19/17 13:46 Source of Information: Reports: Patient, RN, RN Notes Reviewed History Limitations: Reports: No Limitations - History of Present Illness INITIAL COMMENTS - FREE TEXT/NARRATIVE: Patient presents to ER with complaint of sore throat that started 2 days ago. Subjective low grade fevers. Mild congestion. Daughter and son with similar symptoms. Denies cough, nausea, vomiting or abdominal pain. Onset Date: 11/17/17 Duration: Getting Worse Location: Reports: Other (throat) Quality: Reports: Ache Severity: Moderate Improves with: Reports: None Worsens with: Reports: None Associated Symptoms: Reports: No Other Symptoms - Related Data Allergies Allergy/AdvReac Type Severity Reaction Status Date / Time ampicillin Allergy Cannot Verified 11/19/17 14:13 Remember Penicillins Allergy Cannot Verified 11/19/17 14:13 Remember Home Meds: Home Meds . [No Known Home Meds] 11/19/17 [History] Past Medical History - Past Health History Medical/Surgical History: Denies Medical/Surgical History Genitourinary History: Reports: UTI, Recurrent [employer] History: Reports: Psychiatric History: Reports: Depression - Infectious Disease History Infectious Disease History: Reports: Chicken Pox, Measles - Past Surgical History Female Surgical History: Reports: Tubal Ligation Social & Family History - Family History Family Medical History: Noncontributory HEENT: Reports: None Cardiac: Reports: [place], Pacemaker Other Cardiac Family History: Grandfather on mothers side has pacemaker. Grandfather on fathers side of heart-attack Respiratory: Reports: Asthma Other Respiratory Family Hisory: Grandmother on mothers side has "rare lung disease", patient does not know name of disease. Client's mother has asthmatic bronchitis. GI: Reports: Other (See Below) Other GI Family History: father has abdominal hernia r/t colon cancer per client 's mother. : Reports: UTI, Recurrent, Other (See Below) Other Family History: Grandmother has "fallen bladder". OBGYN: Reports: None Musculoskeletal: Reports: Other (See Below) Other Musculoskeletal Family History: Mother has osteopenia Neurological: Reports: CVA Other Neurological Family History: Grandfather had stroke Psychiatric: Reports: Depression Endocrine/Metabolic: Reports: Other (See Below) Other Endocrine/Metabolic Family History: Grandfather has diabetes. Type unknown. Oncologic: Reports: Colon Other Oncologic Family History: Father has colon cancer. - Caffeine Use Caffeine Use: Reports: Coffee, Energy Drinks, Soda Other Caffeine Use: "a lot daily" ED ROS ENT - Review of Systems Review Of Systems: ROS reveals no pertinent complaints other than HPI. ED EXAM, ENT - Physical Exam Exam: See Below Exam Limited By: No Limitations General Appearance: Alert, WD/WN, No Apparent Distress Eye Exam: Bilateral Eye: Normal Inspection Ears: Normal External Exam, Normal Canal, Hearing Grossly Normal, Normal TMs Nose: Normal Inspection, Normal Mucousa, No Blood Mouth/Throat: Pharyngeal Erythema. No: Tonsillar Exudates Head: Atraumatic, Normocephalic Neck: Other ([place] cervical lymphadenopathy. No nuchal rigidity.) Respiratory/Chest: No Respiratory Distress, Lungs Clear, Normal Breath Sounds, No Accessory Muscle Use, Chest Non-Tender Cardiovascular: Normal Peripheral Pulses, Regular Rate, Rhythm, No Edema, No Gallop, No JVD, No Murmur, No Rub GI/Abdominal: Normal Bowel Sounds, Soft, Non-Tender, No Distention (Female) Exam: Deferred Rectal (Female) Exam: Deferred Back: Normal Inspection Extremities: Normal Inspection Neurological: Alert, Oriented, CN II-XII Intact, No Motor/Sensory Deficits Psychiatric: Normal Mood Skin: Warm, Dry, Intact, Normal Color, No Rash Course - Vital Signs Last Recorded V/S: Last Vital Signs Temp 36.8 C 11/19/17 13:53 Pulse 69 11/19/17 13:53 Resp 16 11/19/17 13:53 BP 102/60 11/19/17 13:53 Pulse Ox 98 11/19/17 13:53 - Orders/Labs/Meds Orders: Active Orders 24 hr Category Date Time Status CULTURE STREP A CONFIRMATION [] Stat Lab 11/19/17 13:58 Results STREP SCRN A RAPID W CULT CONF [] Stat Lab 11/19/17 13:58 Results Labs: Rapid strep: Negative. Departure - Departure Time of Disposition: 14:36 Disposition: Home, Self-Care 01 Condition: Good Clinical Impression: Viral pharyngitis - Discharge Information *PRESCRIPTION DRUG MONITORING PROGRAM REVIEWED*: No *COPY OF PRESCRIPTION DRUG MONITORING REPORT IN PATIENT TRISTON: No Instructions: Pharyngitis, [id number] Forms: ED Department Discharge Additional Instructions: Frequent salt water gargles. Tylenol or Ibuprofen as needed. Follow up clinic in 3 to 5 days if not improved. - My Orders Last 24 Hours: My Active Orders 11/19/17 13:58 CULTURE STREP A CONFIRMATION [RM] Stat STREP SCRN A RAPID W CULT CONF [RM] Stat - Assessment/Plan Last 24 Hours: My Active Orders 11/19/17 13:58 CULTURE STREP A CONFIRMATION [RM] Stat STREP SCRN A RAPID W CULT CONF [RM] Stat I have read and agree with the documentation that has been completed regarding this visit. By signing this record, I attest that the documentation was completed in my physical presence and is an accurate record of the encounter.
== END 2017-11-19 14:55 | disposition home or self-care (01) ==
LOC: DL.ED 13:07
DX: J02.9 Acute pharyngitis, unspecified (principal); F17.210 Nicotine dependence, cigarettes, uncomplicated; Z88.0 Allergy status to penicillin; Z88.1 Allergy status to other antibiotic agents
CPT/HCPCS: 87081; 87430; 99283

== ENCOUNTER 2020-07-23 17:19 | Emergency (ER) | payer MEDICAID ==
[2020-07-23 17:53] VITALS: BP 112/61; PULSE 78
[2020-07-23] MEDS ORDERED: Acetaminophen/HYDROcodone 325-10 MG Tab PO ONE (18:12)
--- NOTE | 2020-07-23 18:49 | EDM.PDOC ---
Scribed by Elizabeth Minaya 07/23/20 1849 for Mandeep Guzman MD <Mandeep Guzman - Last Filed: 07/23/20 18:48> ED HPI GENERAL MEDICAL PROBLEM - General Chief Complaint: Upper Extremity Injury/Pain Stated Complaint: FELL OF TRAILOR HURT LEFT ARM Time Seen by Provider: 07/23/20 17:49 Source of Information: Reports: Patient, RN, RN Notes Reviewed History Limitations: Reports: No Limitations - History of Present Illness INITIAL COMMENTS - FREE TEXT/NARRATIVE: Patient presents to ED by POV stating she tripped on trailer, fell and hurt left arm at 1630. She landed on the left arm on the asphalt. She states it hurts from the elbow to the wrist. Patient rates the pain 8/10. She took nothing for the pain. Patient states she heard a snap at the wrist, crack on the elbow and pop of the left shoulder. She is able to wiggle fingers and rotate the wrist, no open areas. Onset: Today Duration: Getting Worse Location: Reports: Upper Extremity, Left Quality: Reports: Ache Severity: Moderate Improves with: Reports: None Worsens with: Reports: None Associated Symptoms: Reports: No Other Symptoms Left Lower Arm Pain Score (Numeric/FACES): 8 - Related Data Allergies Allergy/AdvReac Type Severity Reaction Status Date / Time ampicillin Allergy Cannot Verified 07/23/20 17:53 Remember Penicillins Allergy Cannot Verified 07/23/20 17:53 Remember Home Meds: Home Meds . 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 Grandfather on fathers side of heart-attack Respiratory: Reports: Asthma Other Respiratory Family Hisory: Grandmother on mothers side has "rare lung disease", patient does not know name of disease. Client's mother has asthmatic bronchitis. GI: Reports: Other (See Below) Other GI Family History: father has abdominal hernia r/t colon cancer per client's mother. : Reports: UTI, Recurrent, Other (See Below) Other Family History: Grandmother has "fallen bladder". OBGYN: Reports: None Musculoskeletal: Reports: Other (See Below) Other Musculoskeletal Family History: Mother has osteopenia Neurological: Reports: CVA Other Neurological Family History: Grandfather had stroke Psychiatric: Reports: Depression Endocrine/Metabolic: Reports: Other (See Below) Other Endocrine/Metabolic Family History: Grandfather has diabetes. Type unknown. Oncologic: Reports: Colon Other Oncologic Family History: Father has colon cancer. - Caffeine Use Caffeine Use: Reports: Coffee, Energy Drinks, Soda Other Caffeine Use: "a lot daily" Review of Systems - Review of Systems Review Of Systems: Comprehensive ROS is negative, except as noted in HPI. ED EXAM, GENERAL - Physical Exam Exam: See Below Exam Limited By: No Limitations General Appearance: Alert, WD/WN, No Apparent Distress Nose: Normal Inspection Throat/Mouth: Normal Inspection Head: Atraumatic, Normocephalic Neck: Normal Inspection Respiratory/Chest: No Respiratory Distress Cardiovascular: Normal Peripheral Pulses Extremities: Normal Capillary Refill, Arm Pain, Limited Range of Motion (Left wrist and elbow with swelling and tenderness). No: Increased Warmth, Mottled, Pallor, Redness Neurological: Alert, Oriented, No Motor/Sensory Deficits Course - Re-Assessments/Exams Free Text/Narrative Re-Assessment/Exam: 07/23/20 18:49 Care of pt transferred to Gumaro MEHTA at shift change. Departure - Departure Disposition: Home, Self-Care 01 Clinical Impression: Effusion, left elbow - Discharge Information Instructions: How To Use a Sling, [id number] Forms: ED Department Discharge Care Plan Goals: The patient was advised of the examination and x-ray results during the visit. The patient was placed in a sling to immobilize her elbow. The patient was encouraged to wear the sling over the next week. The patient should rest, ice and elevate her left elbow over the next 24 hours. If the patient has any additional symptoms or concerns, the patient should either visit her primary care facility or return to the emergency department. <Gumaro Green - Last Filed: 07/23/20 19:11> Course - Vital Signs Last Recorded V/S: Last Vital Signs Temp 98 F 07/23/20 17:46 Pulse 78 07/23/20 17:46 Resp 16 07/23/20 17:46 BP 112/61 07/23/20 17:46 Pulse Ox 100 07/23/20 17:46 - Orders/Labs/Meds Meds: Medications Discontinued Medications Generic Name Dose Route Start Last Admin Trade Name Freq PRN Reason Stop Dose Admin Hydrocodone Bitart/Acetaminophen 1 tab 07/23/20 18:12 07/23/20 18:21 Acetaminophen/Hydrocodone 325-10 Mg Tab PO 07/23/20 18:13 1 tab ONETIME ONE Administration - Radiology Interpretation Free Text/Narrative:: [facility] Final Radiology Report Call: [phone] assistance Online chat: [email or web address] Name: ERICA MONTILLA Age: 34Years F Date: 07/23/2020 SSN: -- : 1985 Study: CR WRIST COMP MIN 3V LT Requesting Physician: MANDEEP GUZMAN Images: 3 Addl Studies: Provided Clinical History: Fell of trailer, left elbow and wrist pain Contrast: Contrast Medium: Contrast Amount: Contrast Method: CONFIDENTIALITY STATEMENT This report is intended only for use by the referring physician, and only in accordance with law. If you received this in error, call [phone]. Page 1 of 1 PROCEDURE INFORMATION: Exam: XR Left Wrist Exam date and time: 07/23/2020 6:28 PM Age: 34 years old Clinical indication: Injury or trauma; Fall; Blunt trauma (contusions or hematomas); Wrist; Left; Injury date: 07/23/2020; Additional info: Fell of trailer, left elbow and wrist pain TECHNIQUE: Imaging protocol: XR Left wrist. Views: 3 or more views. COMPARISON: No relevant prior studies available. FINDINGS: Bones/joints: The alignment of the joints is anatomic and the joint spaces are maintained. No fracture is identified. Soft tissues: No soft tissue swelling or radiopaque foreign body is seen. IMPRESSION: Normal appearing wrist. Thank you for allowing us to participate in the care of your patient. Dictated and Authenticated by: Ronald Dejesus MD 07/23/2020 6:57 PM Central Time ([place] & [place]) [facility] Final Radiology Report Call: [phone] assistance Online chat: [email or web address] Name: ERICA MONTILLA Age: 34Years F Date: 07/23/2020 SSN: -- : 1985 Study: CR ELBOW MIN 3V LT Requesting Physician: MANDEEP GUZMAN Images: 3 Addl Studies: Provided Clinical History: Fell of trailer, left elbow and wrist pain Contrast: Contrast Medium: Contrast Amount: Contrast Method: CONFIDENTIALITY STATEMENT This report is intended only for use by the referring physician, and only in accordance with law. If you received this in error, call [phone]. Page 1 of 1 PROCEDURE INFORMATION: Exam: XR Left Elbow Exam date and time: 07/23/2020 6:24 PM Age: 34 years old Clinical indication: Injury or trauma; Fall; Blunt trauma (contusions or hemato mas); Elbow; Left; Injury date: 07/23/2020; Additional info: Fell of trailer, left elbow and wrist pain TECHNIQUE: Imaging protocol: XR Left elbow. Views: 3 or more views. COMPARISON: No relevant prior studies available. FINDINGS: Bones/joints: There is mild prominence of the anterior fat pad which could represent joint effusion. The posterior fat pad is not seen. The alignment of the joints is anatomic and the joint spaces are maintained. There is no evidence of acute fracture. Soft tissues: Unremarkable IMPRESSION: Possible joint effusion. An occult fracture is not excluded. Thank you for allowing us to participate in the care of your patient. Dictated and Authenticated by: Ronald Dejesus MD 07/23/2020 6:57 PM Central Time ([place] & [place]) Departure - Departure Time of Disposition: 19:04 Condition: Fair - Discharge Information *PRESCRIPTION DRUG MONITORING PROGRAM REVIEWED*: Not Applicable *COPY OF PRESCRIPTION DRUG MONITORING REPORT IN PATIENT TRISTON: Not Applicable Sepsis Event Note (ED) - Focused Exam Vital Signs: Vital Signs Temp Pulse Resp BP Pulse Ox 07/23/20 17:46 98 F 78 16 112/61 100 I have read and agree with the documentation that has been completed regarding this visit. By signing this record, I attest that the documentation was completed in my physical presence and is an accurate record of the encounter.
--- NOTE | 2020-07-23 18:57 | CR ---
PROCEDURE INFORMATION: Exam: XR Left Elbow Exam date and time: 07/23/2020 6:24 PM Age: 34 years old Clinical indication: Injury or trauma; Fall; Blunt trauma (contusions or hematomas); Elbow; Left; Injury date: 07/23/2020; Additional info: Fell of trailer, left elbow and wrist pain TECHNIQUE: Imaging protocol: XR Left elbow. Views: 3 or more views. COMPARISON: No relevant prior studies available. FINDINGS: Bones/joints: There is mild prominence of the anterior fat pad which could represent joint effusion. The posterior fat pad is not seen. The alignment of the joints is anatomic and the joint spaces are maintained. There is no evidence of acute fracture. Soft tissues: Unremarkable IMPRESSION: Possible joint effusion. An occult fracture is not excluded.
--- NOTE | 2020-07-23 18:58 | CR ---
PROCEDURE INFORMATION: Exam: XR Left Wrist Exam date and time: 07/23/2020 6:28 PM Age: 34 years old Clinical indication: Injury or trauma; Fall; Blunt trauma (contusions or hematomas); Wrist; Left; Injury date: 07/23/2020; Additional info: Fell of trailer, left elbow and wrist pain TECHNIQUE: Imaging protocol: XR Left wrist. Views: 3 or more views. COMPARISON: No relevant prior studies available. FINDINGS: Bones/joints: The alignment of the joints is anatomic and the joint spaces are maintained. No fracture is identified. Soft tissues: No soft tissue swelling or radiopaque foreign body is seen. IMPRESSION: Normal appearing wrist.
== END 2020-07-23 19:30 | disposition home or self-care (01) ==
LOC: DL.ED 17:19
DX: M25.422 Effusion, left elbow (principal); Z88.0 Allergy status to penicillin; W01.0XXA Fall on same level from slipping, tripping and stumbling without subsequent striking against object, initial encounter
CPT/HCPCS: 73080-LT; 73110-LT; 99282; 99283-25; A9270-GY